=== PATIENT | male | born 1985 | race Two or more races ===

== ENCOUNTER 2024-08-27 12:09 | Emergency (ER) | payer SELFPAY ==
--- NOTE | 2024-08-27 12:34 | XR_ITS ---
Examination: Lumbar spine 3 views Technique one AP lateral coned lateral lower lumbar spine 3 views Exam date and time: August 27, 2024 1241 hrs. Indications: Injury July 06, 2024 injury to lower back, lower back pain radiating to the feet Findings: Adequate alignment lumbar vertebral bodies No lumbar fracture or significant lumbar disc narrowing Impression: No lumbar fracture Consider MRI lumbar spine without contrast follow-up to best assess for focal disc protrusion producing radicular leg foot symptoms
[2024-08-27 12:45] VITALS: BP 131/81; PULSE 77; RESP 18; TEMP 36.8; O2SAT 99; BMI 25.2
[2024-08-27] MEDS: CYCLObenzaPRINE 5 MG TABLET 10 MG PO (14:15)
--- NOTE | 2024-08-27 14:22 | PD.EDBACK ---
ED Back Injury Pain RME/HPI General Chief Complaint: Back Pain/Injury Stated Complaint: LOWER BACK PAIN Time Seen by Provider: 08/27/24 12:14 Arrival date/time: 08/27/24 12:09 RME / HPI RME / HPI Narrative: 39-year-old male patient with no significant past medical history, told me that he was working in the [employer], operating machinery, last month, and suddenly the machine tilted and patient developed sudden onset of back pain. Pain persist described as dull ache, radiating to both anterior thigh. Patient is ambulatory. Severity of symptoms mild. Denies any saddle anesthesia.. Denies any urinary incontinence denies any bladder incontinence. Patient came in asking for Worker's Comp. Related Data Previous Rx's ?Medication ?Instructions ?Recorded cyclobenzaprine 10 mg tablet 10 mg PO TID PRN muscle spasm #30 08/27/24 tabs ibuprofen 800 mg tablet 800 mg PO TID PRN pain #30 tabs 08/27/24 Allergies Allergy/AdvReac Type Severity Reaction Status Date / Time No Known Allergies Allergy Verified 08/27/24 12:11 Review of Systems Review of Systems Narrative Review of Systems: Review of system reviewed and within normal limits except mentioned in HPI ED Exam Narrative Physical exam: VITAL SIGNS: Reviewed. GENERAL APPEARANCE: Alert and interactive, follows commands, no acute distress, HEAD AND FACE: Non-traumatic. ENT: PERRL, pink conjunctivitis, eyelid no trauma, Mucous membrane moist. NECK: Supple, nontender, no nuchal rigidity. CHEST: No tenderness, no crepitus, no paradoxical movement, no retractions. LUNGS: Clear, well ventilated, symmetric, no rales, no wheezing, no ronchi, no stridor, good breath sounds bilaterally. HEART: Regular rate, regular rhythm, no murmur, no gallops. ABDOMEN: Soft, positive bowel sounds, nondistended, no guarding, nontender, no rebound, no masses, RECTAL: Deferred. GENITAL: Deferred. NEUROLOGICAL: Gross motor function intact sensory function intact, Appropriate for age. MUSCULOSKELETAL: low back tenderness, full range of motion. EXTREMITIES: Nontender, full range of motion. SKIN: Color pink, dry, no rash, no lacerations, no abrasions, no contusions. LYMPHATICS: Deferred. Course Quality Measures none Orders Category Date Time Status XR lumbar spine 2-3V Stat Exams 08/27/24 12:34 Completed CYCLObenzaPRINE [Flexeril] Med 08/27/24 12:34 Discontinued 10 mg PO X1 ONE Ketorolac Inj [Toradol Inj] Med 08/27/24 12:34 Discontinued 30 mg IM X1 ONE Vital Signs Vital signs: Vital Signs Temperature 98.2 F 08/27/24 12:45 Pulse Rate 77 08/27/24 12:45 Respiratory Rate 18 08/27/24 12:45 Blood Pressure 131/81 H 08/27/24 12:45 Pulse Oximetry (%) 99 08/27/24 12:45 Oxygen Delivery Method Room Air 08/27/24 12:45 Back Pain / Injury MDM Narrative MDM Narrative:: X-ray of the lumbar spine showed no acute pathology noted. Results discussed with the patient. Worker's Comp. papers was given to the patient. Patient data External records reviewed:: None Clinical information provided by:: none Social determinants that could affect healthcare access:: none Patient has the following chronic illnesses:: None How is presenting disease/condition affected by chronic disease/condition?: no chronic disease Evaluation data The following diagnostics were reviewed and interpreted by me:: radiology exam(s) Lab and/or radiology exams considered but not ordered:: None Interpretation Summary: X-ray of the lumbar spine came back unremarkable. Medications / Prescriptions Medications or Prescriptions considered but not ordered:: None Medication administrations:: Medication Administration History Discontinued Medications Cyclobenzaprine HCl (Cyclobenzaprine 5 Mg Tablet) 10 mg PO X1 ONE Stop: 08/27/24 12:35 Last Admin: 08/27/24 14:15 Dose: 10 mg Documented By: Ketorolac Tromethamine (Ketorolac Inj 60 Mg/2 Ml Vial) 30 mg IM X1 ONE Stop: 08/27/24 12:35 Last Admin: 08/27/24 14:17 Dose: Not Given Documented By: Non-Admin Reason: Patient Refused Comments: patient does not want injection, pain 4/10 per pt. Flexeril. Patient refused Toradol Consultations Consultation(s) initiated? (list below): No Diagnosis Differential diagnosis back pain/injury: lumbar radiculopathy, sciatica and other ( low back pain) Most likely diagnosis given after review of the tests above:: Sciatica, Low back pain Admission Indicated Admission indicated?: not indicated Admission Request Was there a request for admission?: No Disposition Plan Disposition Plan: Discharge Discharge Attestation Discharge Attestation: The patient was given an opportunity to ask questions and understood the discharge instructions. Discharge instructions specifically effects, indications for sooner follow up or return to the emergency department, and the expected course of current diagnosis. Patient condition: Stable Discharge Plan Plan Patient Disposition: HOME (Self Care) Disposition Comment: stable Prescriptions/Referrals Prescriptions/Med Rec: New ibuprofen 800 mg tablet 800 mg PO TID PRN (Reason: pain) Qty: 30 0RF cyclobenzaprine 10 mg tablet 10 mg PO TID PRN (Reason: muscle spasm) Qty: 30 0RF Referrals: No Primary/Family,Physician [Primary Care Provider] - In 1 week Problem List Clinical Impression: Sciatica, Low back pain Patient/Caregiver Discharge Instructions Discharge Activity: activity as tolerated Education Materials: ED Sciatica Additional Instructions: Thank you for the opportunity for serving you today. You are stable for discharged . You are advised to: Follow-up with your Worker's Comp. in 1 to 2 days Return to ED for worsening of symptoms Increase oral fluids Take medication as prescribed Print Language: Puerto Rican Stand Alone Forms: Tova Award Info., Patient Portal Info Letter SARY/EFREM Supervising Physician SARY/EFREM Supervising Physician: MD Juanis
[2024-08-27 14:47] VITALS: BP 144/77; PULSE 64; RESP 18; TEMP 36.8; O2SAT 100
== END 2024-08-27 15:04 | disposition home or self-care (01) ==
PROVIDERS: Emergency Provider Emergency Medicine
DX: M54.42 Lumbago with sciatica, left side (principal); M54.41 Lumbago with sciatica, right side
CPT/HCPCS: 72100; 99283; A9270

== ENCOUNTER → 2024-11-11 | Outpatient (CLI) | payer MEDICAID, SELFPAY ==
--- NOTE | 2024-11-11 | XR_ITS ---
Examination: PA lateral chest 2 views Technique: Upright PA lateral chest 2 views Exam date and time: August 11, 2025 0721 hrs. Indications: Coughing beginning 2 weeks ago. Findings: Normal heart size. Lungs are clear. The osseous structures are intact Impression: No active disease
== END | disposition home or self-care (01) ==
LOC: CDIM 06:51
PROVIDERS: PCP Family Medicine; Referring Provider Physician Assistant Medical; Visit Provider Physician Assistant Medical
DX: R05.9 Cough, unspecified (principal)
CPT/HCPCS: 71046

== ENCOUNTER 2025-04-25 10:34 | Emergency (ER) | payer MEDICAID, SELFPAY ==
[2025-04-25 10:46] VITALS: BP 131/79; PULSE 76; RESP 19; TEMP 36.7; O2SAT 98; BMI 22.4
--- NOTE | 2025-04-25 10:53 | XR_ITS ---
Examination: Shoulder,right, 3 views Technique: Shoulder AP internal rotation, AP external rotation, Y view shoulder, 3 views Exam date and time :April 17, 2025 1101 hours INDICATIONS: Patient fell today with into the shoulder, shoulder pain. FINDINGS: No shoulder fracture or dislocation 3 mm AC joint offset IMPRESSION: 3 mm AC joint separation
--- NOTE | 2025-04-25 10:53 | XR_ITS ---
Examination: Clavicle 2 views, right Technique: Clavicle AP, angled up AP, 2 views Exam date and time: April 25, 2025 1103 hours INDICATIONS: Patient fell today with injury to the shoulder, clavicle pain FINDINGS: No acute fracture 3 mm AC joint separation IMPRESSION: Positive for AC joint separation
--- NOTE | 2025-04-25 10:54 | EDNOTE_ITS ---
<Statement entered by Lima Saleh MD - 04/25/25 17:11> As co-signing physician, I was present and available for consult prn. I concur with the plan and care as documented by the midlevel provider. Upper Extremity Injury RME/HPI General Chief Complaint: Extremity Injury, Upper Stated Complaint: 5ft fall off ladder/right shoulder injury Time Seen by Provider: 04/25/25 10:43 Source: patient Arrival date/time: 04/25/25 10:34 39-year-old male with no known medical history presents to the emergency room with a chief complaint of pain and tenderness to his right shoulder x 2 days Mode of arrival: ambulatory Limitations: no limitations Related Data Previous Rx's ?Medication ?Instructions ?Recorded cyclobenzaprine 10 mg tablet 10 mg PO TID PRN muscle s pasm #30 08/27/24 tabs ibuprofen 800 mg tablet 800 mg PO TID PRN pain #30 t abs 08/27/24 Allergies Allergy/AdvReac Type Severity Reaction Status Date / Time No Known Allergies Allergy Verified 11/11/24 06:44 Review of Systems Review of Systems Systems Reviewed: All systems reviewed, normal except as documented Constitutional Constitutional: Reports system reviewed and no additional complaints, except as documented, Denies fatigue, Denies fever(s), Denies headache(s) and Denies weakness Eyes Eyes: Reports system reviewed and no additional complaints, except as d ocumented, Denies blurry vision and Denies change in vision ENT Ears, Nose, Mouth, and Throat: Reports system reviewed and no additional complaints, except as documented, Denies otalgia, Denies headache(s), Denies nasal congestion, Denies throat swelling and Denies vertigo Cardiovascular Cardiovascular: Reports system reviewed and no additional complaints, except as documented, Denies chest pain, Denies dyspnea and Denies dyspnea on exertion Respiratory Respiratory: Reports system reviewed and no additional complaints, except as documented, Denies chest congestion, Denies cough, Denies dyspnea, Denies dyspnea on exertion and Denies wheezing Gastrointestinal Gastrointestinal: Reports system reviewed and no additional complaints, except as documented, Denies abdominal pain, Denies cramping, Denies nausea and Denies vomiting Genitourinary Genitourinary: Reports system reviewed and no additional complaints, except as documented, Denies dysuria and Denies hematuria Musculoskeletal Musculoskeletal: Reports system reviewed and no additional complaints, except as documented, Reports arthralgias, Denies back pain, Reports joint swelling and Reports limited range of motion Integumentary/Breasts Skin/Breast: Reports system reviewed and no additional complaints, except as documented and Denies wounds Neurologic Neurologic: Reports system reviewed and no additional complaints, except as documented, Denies confusion, Denies headache(s), Denies lack of coordination, Denies vertigo and Denies weakness Psychiatric Psychiatric: Reports system reviewed and no additional complaints, except as documented, Denies anxiety, Denies confusion, Denies depression, Denies paranoia, Denies suicidal ideation and Denies tactile hallucinations Endocrine Endocrine: Reports system reviewed and no additional complaints, except as documented and Denies fatigue Hematologic/Lymphatic Hematologic/Lymphatic: Reports system reviewed and no additional complaints, except as documented and Denies lymphadenopathy Allergic/Immunologic Allergic/Immunologic: Reports system reviewed and no additional complaints, except as documented, Denies throat swelling, Denies urticaria and Denies wheezing Past Medical History Social History SMOKING STATUS: Never smoker ED Exam General Limitations: Present no limitations General appearance: Present alert and in no apparent distress Head Head exam: Present atraumatic Eye Eye exam: Present normal appearance, PERRL and EOMI ENT ENT exam: Present normal exam, normal oropharynx and mucous membranes moist Neck Neck exam: Present normal inspection, full ROM and trachea midline Chest Chest inspection: Present normal inspection and symmetric chest wall rise Respiratory Respiratory exam: Present normal lung sounds bilaterally Cardiovascular Cardiovascular exam: Present regular rate, normal rhythm and normal heart sounds Abdominal Exam Abdominal exam: Present soft and normal bowel sounds Extremities Exam Extremities exam: Present normal inspection and full ROM Expanded Upper Extremity Exam Shoulder exam: Present tenderness, swelling and tenderness over AC joint; Absent full ROM Arm exam: Present normal inspection Elbow exam: Present normal inspection Forearm/Wrist exam: Present normal inspection Hand exam: Present normal inspection Vascular exam: Normal capillary refill Back Exam Back exam: Present normal inspection and full ROM Neurological Exam Neurological exam: Present alert, oriented X3 and CN II-XII intact Psychiatric Psychiatric exam: Present normal affect and normal mood Skin Skin exam: Present warm, dry, intact and normal color Course Quality Measures none Orders Category Date Time Status sling [Splint / Immobilizer] STAT Care 04/25/25 10:53 Completed XR clavicle RT Stat Exams 04/25/25 10:53 Completed XR shoulder RT min 2V Stat Exams 04/25/25 10:53 Completed Ketorolac Inj [Toradol Inj] Med 04/25/25 10:53 Discontinued 30 mg IM X1 ONE Vital Signs Vital signs: Vital Signs Temperature 98.1 F 04/25/25 10:46 Pulse Rate 76 04/25/25 10:46 Respiratory Rate 19 04/25/25 10:46 Blood Pressure 131/79 H 04/25/25 10:46 Pulse Oximetry (%) 98 04/25/25 10:46 Oxygen Delivery Method Room Air 04/25/25 10:46 Extremity Injury MDM Narrative MDM Narrative:: 39-year-old male with no known medical history presents to the emergency room with a chief complaint of pain and tenderness to his right shoulder x 2 days Patient is hemodynamically stable and in no apparent distress Physical examination shows tenderness and pain to the patient's right shoulder. Patient has limited range of motion and is unable to lift his arm above his head. X-ray of the right shoulder was completed and there is a 3 mm AC separation there is no acute fracture or dislocation. I spoke to the patient and told him that there is no acute fractures on his x-rays however the AC separation may be indicative of ligament damage or tears. I spoke to him and told him that his next course of action will be to follow-up with his primary care provider and have his signs and symptoms continue an MRI will be indicated to check for any ligament damage or tears Patient was discharged and educated to follow-up with primary care provider in the next 24 to 48 hours and return to the emergency room for any evidence of worsening signs or symptoms Patient data External records reviewed:: [facility] previous records Clinical information provided by:: patient Social determinants that could affect healthcare access:: none Patient has the following chronic illnesses:: No chronic illness How is presenting disease/condition affected by chronic disease/condition?: no chronic disease Evaluation data The following diagnostics were reviewed and interpreted by me:: lab results and radiology exam(s) Lab and/or radiology exams considered but not ordered:: Labs and radiology exams considered and ordered Interpretation Summary: Shoulder [id number]: No shoulder fracture or dislocation 3 mm AC joint offset IMPRESSION: 3 mm AC joint separation Medications / Prescriptions Medications or Prescriptions considered but not ordered:: Medication given Medication administrations:: Medication Administration History Discontinued Medications Ketorolac Tromethamine (Ketorolac Inj 60 Mg/2 Ml Vial) 30 mg IM X1 ONE Stop: 04/25/25 10:54 Last Admin: 04/25/25 11:03 Dose: 30 mg Documented By: VIVIEN Medication given Consultations Consultation(s) initiated? (list below): No Diagnosis Upper Extremity Injury Differential Diagnosis: dislocation of shoulder, fracture of clavicle and other (Shoulder sprain) Most likely diagnosis given after review of the tests above:: Right shoulder sprain Admission Indicated Admission indicated?: not indicated Admission Request Was there a request for admission?: No Disposition Plan Disposition Plan: Discharge Discharge Attestation Discharge Attestation: The patient and all family members were given an opportunity to ask questions and understood the discharge instructions. Discharge instructions specifically effects, indications for sooner follow up or return to the emergency department, and the expected course of current diagnosis. Patient condition: Stable Discharge Plan Plan Patient Disposition: HOME (Self Care) Discharge Disposition comment: Stable Prescriptions/Referrals Prescriptions/Med Rec: No Action ibuprofen 800 mg tablet 800 mg PO TID PRN (Reason: pain) Qty: 30 0RF cyclobenzaprine 10 mg tablet 10 mg PO TID PRN (Reason: muscle spasm) Qty: 30 0RF Referrals: Eddie Thomas MD [Primary Care Provider] - In 1 week Problem List Clinical Impression: Shoulder sprain Patient/Caregiver Discharge Instructions Education Materials: Treating?Strains and Sprains, ED Shoulder Sprain Additional Instructions: Por favor, consulte con mayer m?dico de cabecera en las pr?ximas 24 a 48 horas. Las radiograf?as de clav?cula y hombro dieron negativo para cualquier fractura o luxaci?n aguda; sin embargo, se observ? cierta separaci?n en el hombro. Si los signos y s?ntomas persisten, consulte con mayer m?dico de cabecera para emily posible resonancia magn?bear y evaluar si hay da?o o desgarro de ligamentos. Si observa alg?n empeoramiento de los signos o s?ntomas, acuda a urgencias de inmediato. Print Language: British Stand Alone Forms: [employer]ova Award Info., Patient Portal Info Letter PA/EFREM Supervising Physician SARY/EFREM Supervising Physician: Dr. SALEH
[2025-04-25] MEDS: KETOROLAC INJ 60 MG/2 ML VIAL 30 MG IM (11:03)
== END 2025-04-25 12:22 | disposition home or self-care (01) ==
PROVIDERS: Emergency Provider Nurse Practitioner Family; PCP Family Medicine
DX: S43.401A Unspecified sprain of right shoulder joint, initial encounter (principal); S43.101A Unspecified dislocation of right acromioclavicular joint, initial encounter; W11.XXXA Fall on and from ladder, initial encounter
CPT/HCPCS: 73000; 73030; 96372; 99283; J1885

== ENCOUNTER 2025-07-20 17:50 | Emergency (ER) | payer MEDICAID, SELFPAY ==
[2025-07-20 17:54] VITALS: BP 130/66; PULSE 82; RESP 20; TEMP 36.7; O2SAT 95
--- NOTE | 2025-07-20 18:06 | EDNOTE_ITS ---
Upper Extremity Injury RME/HPI General Chief Complaint: Hand/Wrist Problems Stated Complaint: Right wrist deformity from fall Time Seen by Provider: 07/20/25 18:04 Arrival date/time: 07/20/25 17:50 40-year-old male reports with complaints of right arm pain swelling and deformity. Patient states he has been drinking and he fell down a flight of stairs injuring the right wrist. He denies numbness or tingling but states that he is unable to move the wrist or hand secondary to severe pain. He has not taken any medications for pain as he has been drinking alcohol Related Data Previous Rx's ?Medication ?Instructions ?Recorded cyclobenzaprine 10 mg tablet 10 mg PO TID PRN muscle s pasm #30 08/27/24 tabs ibuprofen 800 mg tablet 800 mg PO TID PRN pain #30 t abs 08/27/24 ibuprofen 800 mg tablet 800 mg PO TID PRN pain #30 t abs 07/20/25 Allergies Allergy/AdvReac Type Severity Reaction Status Date / Time No Known Allergies Allergy Verified 07/20/25 17:54 Review of Systems Musculoskeletal Musculoskeletal: Reports arthralgias, Reports deformity, Reports joint swelling, Denies numbness and Denies tingling Integumentary/Breasts Skin/Breast: Denies unusual bruising and Denies wounds Neurologic Neurologic: Denies numbness and Denies tingling Hematologic/Lymphatic Hematologic/Lymphatic: Denies easy bleeding and Denies easy bruising Past Medical History Social History SMOKING STATUS: Never smoker ED Exam General General appearance: Present in no apparent distress and appears intoxicated Head Head exam: Present atraumatic Expanded Upper Extremity Exam Shoulder exam: Present normal inspection and full ROM Arm exam: Present normal inspection and full ROM Elbow exam: Present normal inspection and full ROM Forearm/Wrist exam: Present other (right wrist obvious deformity swelling diffuse tenderness range of motion unable to assess secondary to pain however radial ulnar pulses 2+ unable to assess strength hand full range of motion cap refill less than 2 seconds all digits unable to assess strength secondary to pain) Neurological Exam Neurological exam: Present alert, oriented X3 and CN II-XII intact Psychiatric Psychiatric exam: Present normal affect and normal mood Skin Skin exam: Present warm, dry, intact and normal color Course Course Course Narrative: [facility] [address] [place] [address] [facility] Report Signed Patient: TONY ONEILL Record#: [id number] Birthdate: 1985 Age/Sex: 40 / M Location: [facility] Attending Dr: Ordering Physician: Rodney Birmingham PA-C Date of Service: 07/20/25 Procedure(s): XR wrist RT 2V Accession Number(s): [id number] cc: Romero Brown MD; NO PRIMARY/FAMILY,PHYSICIAN; Rodney Birmingham PA-C~ EXAMINATION: Right wrist 2 views TECHNIQUE: AP lateral right wrist 2 views Date and time: July 20, 2025, 1809 hours INDICATIONS: Patient fell off a ladder today with injury of the wrist, wrist pain. FINDINGS: Acute comminuted impacted fracture distal radial metaphysis, the distal articulating surface of the radius angulated dorsally No significant offset Displaced ulnar styloid tip fracture Carpal bones intact IMPRESSION: Acute comminuted impacted angulated fracture distal radial metaphysis Dictated By: Romero Brown MD Signed By: <Electronically signed by Romero Brown MD in OV> 07/20/251828 DD/ 27 TD/TT: 07/20/251827 [place] Supervisor: [facility] Quality Measures none Orders Category Date Time Status immobilizer [Splint / Immobilizer] STAT Care 07/20/25 19:29 Active XR wrist RT 2V Stat Exams 07/20/25 18:05 Completed Vital Signs Vital signs: Vital Signs Temperature 98.1 F 07/20/25 17:54 Pulse Rate 82 07/20/25 17:54 Respiratory Rate 20 07/20/25 17:54 Blood Pressure 130/66 07/20/25 17:54 Pulse Oximetry (%) 95 07/20/25 17:54 Oxygen Delivery Method Room Air 07/20/25 17:54 Extremity Injury Patient data External records reviewed:: None Clinical information provided by:: patient Social determinants that could affect healthcare access:: none Patient has the following chronic illnesses:: none How is presenting disease/condition affected by chronic disease/condition?: no chronic disease Evaluation data The following diagnostics were reviewed and interpreted by me:: radiology exam(s) Lab and/or radiology exams considered but not ordered:: none Interpretation Summary: Wrist fracture Medications / Prescriptions Medications or Prescriptions considered but not ordered:: pain medications but patient is intoxicated Medication administrations:: none Consultations Consultation(s) initiated? (list below): No Diagnosis Upper Extremity Injury Differential Diagnosis: sprain and strain of wrist, fr acture of wrist and fracture of hand Most likely diagnosis given after review of the tests above:: wrist fracture Admission Indicated Admission indicated?: not indicated Admission Request Was there a request for admission?: No Disposition Plan Disposition Plan: Discharge Discharge Attestation Discharge Attestation: The patient and all family members were given an opportunity to ask questions and understood the discharge instructions. Discharge instructions specifically effects, indications for sooner follow up or return to the emergency department, and the expected course of current diagnosis. Patient condition: Stable Discharge Plan Plan Patient Disposition: HOME (Self Care) Prescriptions/Referrals Prescriptions/Med Rec: New ibuprofen 800 mg tablet 800 mg PO TID PRN (Reason: pain) Qty: 30 0RF No Action ibuprofen 800 mg tablet 800 mg PO TID PRN (Reason: pain) Qty: 30 0RF cyclobenzaprine 10 mg tablet 10 mg PO TID PRN (Reason: muscle spasm) Qty: 30 0RF Referrals: No Primary/Family,Physician [Primary Care Provider] - 07/21/25 Problem List Clinical Impression: Fracture of wrist Patient/Caregiver Discharge Instructions Discharge Activity: activity as tolerated Education Materials: ED Fracture, Wrist, General Additional Instructions: You must wear the splint take medication as needed for pain follow with your primary care provider tomorrow for referral to specialist Print Language: Liberian Stand Alone Forms: Tova Award Info., Patient Portal Info Letter
== END 2025-07-20 20:55 | disposition home or self-care (01) ==
PROVIDERS: Emergency Provider Emergency Medicine
DX: S52.591A Other fractures of lower end of right radius, initial encounter for closed fracture (principal); W10.9XXA Fall (on) (from) unspecified stairs and steps, initial encounter
CPT/HCPCS: 29125; 73100; 99283

== ENCOUNTER 2025-07-29 09:30 | Day surgery (SDC) | payer MEDICAID, SELFPAY ==
--- NOTE | 2025-07-28 12:05 | EKG_ITS ---
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
[2025-07-28 12:10] VITALS: BMI 24.1
[2025-07-28 15:13] LABS: Basophils # (Auto) 0.1 Thou/mm3 (0.0-0.2); Basophils % (Auto) 1 % (0-2.5); Eosinophils # (Auto) 0.1 Thou/mm3 (0.0-0.5); Eosinophils % (Auto) 2 % (0-10); Hematocrit 44.9 % (41.0-53.0); Hemoglobin 15.4 g/dL (13.5-16.0); Immature Granulocytes Auto 0.02 Thou/mm3 (0.00-0.00); Lymphocytes # (Auto) 2.3 Thou/mm3 (1.0-4.8); Lymphocytes % (Auto) 34 % (10-50); Mean Corpuscular HGB Conc 34.3 g/dl (31.0-37.0); Mean Corpuscular Hemoglobin 29.3 pg (25.0-35.0); Mean Corpuscular Volume 86 fL (80-100); Monocytes # (Auto) 0.7 Thou/mm3 (0.0-0.8); Monocytes % (Auto) 11 % (0-12); Neutrophils # (Auto) 3.5 Thou/mm3 (1.8-7.7); Neutrophils % (Auto) 52 % (37-80); Nucleated Red Blood Cell # 0.00 Thou/mm3 (0.00-0.00); Nucleated Red Blood Cell % 0 /100 WBC (0); Platelet Count 221 Thou/mm3 (140-440); RDW Standard Deviation 38.2 fL (35.1-43.9); Red Blood Count 5.25 Miln/mm3 (4.50-5.90); White Blood Count 6.8 Thou/mm3 (3.8-10.6)
[2025-07-28 15:21] LABS: INR 1.0 (0.9-1.3); Partial Thromboplastin Time 25.9 Seconds (22.0-36.0); Prothrombin Time 10.4 Seconds (9.0-12.2)
[2025-07-28 15:24] LABS: Anion Gap 10 (7-16); BUN/Creatinine Ratio 11 Ratio (12-20); Blood Urea Nitrogen 10 mg/dL (9-23); Calcium 9.4 mg/dL (8.3-10.6); Carbon Dioxide 27.8 mMol/L (20.0-31.0); Chloride 103 mMol/L (98-107); Creatinine (Component) 0.9 mg/dL (0.6-1.3); Estimated Creatinine Clearance 101.0 mL/min (>60); Glucose 91 mg/dL (74-106); Osmolality,Calculated 280 (275-295); Potassium 4.2 mMol/L (3.4-5.1); Sodium 141 mMol/L (136-145); eGFR > 60 See Note
[2025-07-29] VITALS (8 sets, daily range): BP systolic 123–159; BP diastolic 62–89; PULSE 63–96; RESP 12–20; TEMP 36.3–36.5; O2SAT 97–100; BMI 24.1
--- NOTE | 2025-07-29 10:00 | SUR.PREOP ---
Patient expressed gratitude for prayer before their procedure.
[2025-07-29] MEDS: RINGERS LACTATED 1000 ML 1,000 ML 20 ML IV (10:17)
--- NOTE | 2025-07-29 11:55 | XR_ITS ---
EXAMINATION: Fluoroscopy AP lateral right wrist 5 views Date and time: July 29, 2025, 1356 hours INDICATIONS: Operative reduction internal fixation fracture distal radius TECHNIQUE AND FINDINGS: 5. Spot fluoroscopic films distal radius Operative reduction internal fixation fracture distal radius with anatomic alignment Satisfactory position orthopedic hardware Fluoroscopy 34 seconds radiation dose 0.29 mGy IMPRESSION: Operative reduction internal fixation fracture distal radius with anatomic alignment
--- NOTE | 2025-07-29 13:26 | PD.SUROPNT ---
Date of Procedure 07/29/25 Pre Op Diagnosis Displaced angulated comminuted intra-articular fracture of the right distal radius Post Op Diagnosis Same Procedure open reduction internal fixation with volar Synthes interlocking plate and screws Findings Comminuted intra-articular angulated impacted displaced fracture of the right distal radius Procedure Description Patient was given general endotracheal anesthesia. Once satisfactory anesthesia achieved a tourniquet was placed on right upper arm. Following that part was thoroughly prepped and draped. After using Esmarch the tourniquet pressure was raised to 250 mmHg Intravenous antibiotics was given at the time of anesthesia I skin incision was made from wrist crease extending proximally for about 3 to 4 inches. Deeper dissection was carried out. A plane was developed between flexor carpi radialis muscle and brachioradialis muscle. The radial nerve and artery was protected and the brachioradialis muscle and median nerve was protected and the flexor carpi radialis muscle. Deeper retractor was placed. Pronator quadratus muscle was encountered which was reflected with the help of periosteal elevator. Fracture fragment was exposed. With the help of [place] the soft tissue interposed between the fracture fragment was removed. Following that the wrist was manipulated to check the CR. The disimpaction was achieved. There was some lateral displacement which was also reduced to very good acceptable alignment Following the 4-hole her gentle 5 hole vertical plate was mounted over the volar aspect. Was satisfactory pressure achieved and a K wire was placed to hold the plate Following that drill hole was made into the vertical limb of the plate and appropriate size cortical screw was placed. Following that attention was paid towards the distal end. 2 holes in the middle was drilled and the appropriate side cortical screw was placed. While tightening the cortical screw the wrist was flexed to maintain the volar tilt. The position was checked with the C arm and found to be very good and volar tilt was maintained. Following that another cortical screw was placed at the distal end of the vertical limb. The K wire was then removed. Following that 2 locking screw was placed in the distal horizontal loop and also 2 locking screw was placed in the proximal vertical limb. Patient was checked at the CR and found to be very good. The reduction was achieved. The length was maintained. The volar tilt was also maintained Wound was irrigated with antibiotic solution every 4 to 5 days There was a with help of 2-0 Vicryl in an interrupted fashion for the subcu tissue at the fascia. The skin was closed with duong 20 mL of quarter percent Marcaine was injected at the skin incision site. After cleaning the wound with hydrogen peroxide solution a sterile dressing was applied. A short arm splint was applied and tourniquet pressure was released Patient tolerated procedure well. Estimated blood loss 10 mL. Prognosis in this case is fair to good Complication. None Anesthesia GETA Pathology / specimen None Estimated Blood Loss 10 Surgeon Paco Araiza MD Surgical Staff Operation Date: 07/29/25 11:45 Case Staff Anesthesiologist: Ant Carlson RNelevator adjuster: Desi Mckeon
--- NOTE | 2025-07-29 13:28 | XR_ITS ---
EXAMINATION: Right wrist 2 views TECHNIQUE: AP lateral right wrist 2 views Date and time: July 29, 2025, 1401 hours, comparison July 20, 2025 INDICATIONS: Status post operative reduction internal fixation wrist fracture today. FINDINGS: Postop reduction internal fixation comminuted fracture distal radial metaphysis. Satisfactory alignment. Orthopedic hardware satisfactory position IMPRESSION: Status post operative reduction internal fixation comminuted fracture distal radius with satisfactory alignment
--- NOTE | 2025-07-29 13:41 | SUR.PHASEI ---
1341: Pt. AAOx4, vitals stable, breathing unlabored, no complaint of pain or nausea, dressing to right wrist CDI, no active bleed noted, bilateral brachial pulses strong and regular, cap refill to bilateral hands less than 3 seconds, pt. able to wiggle bilateral fingers, report received from MD Carlson and Kd CHAHAL.
[2025-07-29] MEDS: fentaNYL CIT INJ 50 mCg/ML AMP 2ML IVP ×2 (13:55→14:29)
--- NOTE | 2025-07-29 14:02 | ESHP_ITS ---
RE: TONY ONEILL : 1985 DATE OF ADMISSION: 07/29/2025 Patient came to my office on 07/28/2025 for detailed preop history and physical examination. HISTORY OF PRESENT COMPLAINT: Patient present to me with history of pain in the right wrist. As per patient, he [place] horse [place] 07[place]/2025. Patient went to emergency room. X-ray was obtained. It revealed comminuted intraarticular impacted angulated fracture of the right distal radius. Patient was then referred to me. PAST MEDICAL HISTORY: No history of diabetes mellitus, high blood pressure, asthma, seizure, chest pain, myocardial infarction, bleeding disorder. PAST SURGICAL HISTORY: Nil. DRUG HISTORY: Patient take acetaminophen. ALLERGIES: NIL KNOWN. FAMILY HISTORY AND SOCIAL HISTORY: Patient is disabled now. Admits social drinking. Does not smoke. PHYSICAL EXAMINATION: GENERAL: Normal built person. VITAL SIGNS: Pulse 64 per minute, blood pressure is 128/82. NECK: Soft, supple. No mass felt. Trachea is centrally placed. CARDIOVASCULAR SYSTEM: First and second heart sound normal. No murmur heard. RESPIRATORY SYSTEM: Bilateral vesicular breath sounds. Chest clear. ABDOMEN: Soft, scaphoid. No mass felt. Bowel sounds present. RIGHT WRIST EXAMINATION: Swelling 2+. There is tenderness. There is mild numbness in the outer 4 digits. Radial artery is palpable. Range of motion not tested due to pain and fracture. RADIOGRAPHIC STUDIES: X-ray revealed comminuted intraarticular angulated impacted fracture of the right distal radius. Patient was explained the diagnosis and prognosis. Explained that it needs to be fixed and to do that plate and screws will be put on. Sometime, the plate and screws may give some problem, in that case a patient may need further surgical procedure in the form of removal of the plate and screws. Risk with anesthesia was explained and that includes but not limited to reaction to anesthetic agents, cardiac arrest and rarely it might be fatal. Risk with operation includes infection and if that happens patient may need further surgical procedure. Other risk include delayed healing, wound dehiscence, etc. Sometime rare complication including possible development of the carpal tunnel compression may happen. If that happens, patient may need surgical procedure and try to remove the plate and screws plus release of the carpal tunnel compression. Rare complication also include reflex sympathetic dystrophy and if that happens that has to be dealt with. No guarantee is given regarding outcome of the procedure and/or relief of symptoms and/or functional outcome. Being intraarticular fracture, there is a high risk of developing early DJD of the right wrist which again may cause restriction of the range of motion. After discussing risk, benefit, limitation, patient wanted to proceed with surgery. All questions were answered. Surgery booked for 07/29/2025. DT: 13:48:35 TT: 14:01:00 Ref: [id number] - TID: [id number]
--- NOTE | 2025-07-29 14:50 | SUR.PHASEII ---
1450: Pt. AAOx4, vitals stable, breathing unlabored, no complaint of pain or nausea, dressing to right wrist CDI, no active bleed noted, bilateral brachial pulses strong and regular, cap refill to bilateral hands less then 3 seconds, pt. able to wiggle bilateral fingers, pt. tolerated bites of ice chips well, gave discharge instructions to the pt. and his using a signal maintainer Tennille QUEZADA, both verbalized understanding and had no further questions. Pt. left with all personal belongings.
--- NOTE | 2025-08-04 15:21 | ESPR_ITS ---
Documentation for date of: 08/04/25 POST ANESTHESIA NOTE: Patient had GETA and R supraclavicular block for R distal radius ORIF on 07/29/25. I just called and spoke with him on the phone via clay dry press mixer operator and he denied any problems from anesthesia. Ant Carlson MD Anesthesia Progress Note Progress Note Most recent Vital Signs: Last Vital Signs Temp 97.7 F 07/29/25 14:41 Pulse 85 07/29/25 14:41 Resp 12 07/29/25 14:41 BP 143/80 H 07/29/25 14:41 Pulse Ox 97 07/29/25 14:41 O2 Flow Rate 2 07/29/25 13:51
== END 2025-07-29 14:50 | disposition home or self-care (01) ==
PROVIDERS: Referring Provider Orthopaedic Surgery; Visit Provider Orthopaedic Surgery
PROC: (CPT 25608; principal; 2025-07-29 11:30)
DX: S52.571A Other intraarticular fracture of lower end of right radius, initial encounter for closed fracture (principal); V80.010A Animal-rider injured by fall from or being thrown from horse in noncollision accident, initial encounter; Z01.810 Encounter for preprocedural cardiovascular examination
CPT/HCPCS: 25608; 36415; 73100; 76000; 80048; 85025; 85610; 85730; 93005; A4649; C1713; J0690; J1100; J1580; J2250; J2405; J2704; J2710; J2795; J3010; J3490; J7120; J0665; J1596